=== PATIENT | female | born 1960 | race American Indian/Alaskan Native ===

== ENCOUNTER 2017-03-18 15:20 | Emergency (ER) | payer BC ==
--- NOTE | 2017-03-18 19:20 | XRay Report ---
FINAL REPORT EXAM: XR KNEE 3V LT HISTORY: ground level fall with left knee injury TECHNIQUE: AP, oblique, and lateral views of the left knee PRIORS: None. FINDINGS: No acute fracture or dislocation is seen. The soft tissues are unremarkable with no evidence for suprapatellar joint effusion. The bony mineralization is normal. There is moderate narrowing of the lateral joint compartment. Spurring off the tibial spines and the lateral knee joint is seen. IMPRESSION: No acute abnormality of the left knee. Lateral joint compartment narrowing, likely related to osteoarthritis.
--- NOTE | 2017-03-18 20:06 | Emergency Department Report ---
HPI - General Chief Complaint: Fall Time Seen by Provider: 03/18/17 19:40 - HPI HPI: Patient is a 56-year-old female with no past medical history presents to ED status post fall at [facility] earlier today. Patient states she was walking when she slipped and fell. Patient states the fall was a ground-level fall she is experiencing left knee pain after the fall. She states she did not hit her head she had no loss of consciousness after accident. Patient denies fever/chills/nausea/vomiting/abdominal pain/headaches/dizziness or any other problems. ED Past Medical Hx - Past Medical History Previous Medical History?: No - Surgical History Past Surgical History?: Yes Additional Surgical History: right breast lumpectomy - Social History Smoking Status: Never Smoker Substance Use Type: Alcohol - Medications Home Medications: Home Medications Medication Instructions Recorded Confirmed Last Taken Type Cyclobenzaprine [Flexeril 10 MG 10 mg PO QHS #24 tablet 03/18/17 Unknown Rx TAB] Ibuprofen [Motrin] 800 mg PO Q8HR PRN #30 tablet 03/18/17 Unknown Rx ED Review of Systems ROS: Stated complaint: L KNEE/HIP PAIN Other details as noted in HPI Constitutional: denies: chills, fever Eyes: denies: eye pain, eye discharge, vision change ENT: denies: ear pain, throat pain Respiratory: denies: cough, shortness of breath, wheezing Cardiovascular: denies: chest pain, palpitations Endocrine: no symptoms reported Gastrointestinal: denies: abdominal pain, nausea, diarrhea Genitourinary: denies: urgency, dysuria, discharge Musculoskeletal: denies: back pain, joint swelling, arthralgia Skin: denies: rash, lesions Neurological: denies: headache, weakness, paresthesias Psychiatric: denies: anxiety, depression Hematological/Lymphatic: denies: easy bleeding, easy bruising Physical Exam - Physical Exam Vital Signs: Vital Signs 03/18/17 03/18/17 15:39 17:29 Temperature 97.6 F 98.7 F Pulse Rate 68 70 Respiratory 18 20 Rate Blood Pressure 157/105 Blood Pressure 169/114 [Right] O2 Sat by Pulse 97 99 Oximetry Physical Exam: GENERAL: Alert and oriented x3, no apparent distress, Normal Gait, atraumatic. HEAD: Head is normocephalic and a-traumatic. NECK: Supple. Non edematous, No carotid bruits. No lymphadenopathy or thyromegaly. No C-spine tenderness LUNGS: Symetrical with respiration, No wheezing, no rales or crackles, CTAB. HEART: S1, S2 present, regular rate and rhythm without murmur, no rubs, no gallops. EXTREMITIES/MUSCULOSKELETAL: No cyanosis, clubbing, rash, lesions or edema. Knee joint is intact. No laxity. No edema noted to matter is mildly tender to palpation of the anterior knee. Full ROM bilaterally. UE/LE Pulses 2+ bilaterally. NEUROLOGIC: The patient is cooperative with no focal neurologic deficits. Cranial nerves II through XII are grossly intact. SKIN: Warm and dry, No lesions, No ulceration or induration present. ED Course Vital Signs 03/18/17 03/18/17 15:39 17:29 Temperature 97.6 F 98.7 F Pulse Rate 68 70 Respiratory 18 20 Rate Blood Pressure 157/105 Blood Pressure 169/114 [Right] O2 Sat by Pulse 97 99 Oximetry ED Medical Decision Making - Medical Decision Making 56-year-old female presents with knee pain status post fall ED course: Patient received Flexeril and Toradol in the ED. Vital signs are normal patient is in no acute distress Discussed the patient to follow up with primary care physician to be evaluated for blood pressure. Patient states she has no history of blood pressure. Patient states she understands instructions and will follow up as instructed. Discussed the patient is symptoms worsen to return to ED. Critical care attestation.: If time is entered above; I have spent that time in minutes in the direct care of this critically ill patient, excluding procedure time. ED Disposition Clinical Impression: Fall from ground level Knee pain, left Qualifiers: Chronicity: acute Qualified Code(s): M25.562 - Pain in left knee Disposition: DISCHARGED TO HOME OR SELFCARE Is pt being admited?: No Does the pt Need Aspirin: No Condition: Stable Instructions: Arthralgia (ED), Heat Pack Application (ED), Trigger Point Pain ( ED) Prescriptions: Cyclobenzaprine [Flexeril 10 MG TAB] 10 mg PO QHS #24 tablet Ibuprofen [Motrin] 800 mg PO Q8HR PRN #30 tablet PRN Reason: Pain Referrals: PRIMARY CARE, [Primary Care Provider] - 3-5 Days Forms: Accompanied Note, Work/School Release Form(ED) Time of Disposition: 20:15
[2017-03-18] MEDS ORDERED: FLEXERIL PO ONE (20:07)
[2017-03-18] MEDS ORDERED: TORADOL IM ONE (20:07)
[2017-03-18 20:36] VITALS: BP 132/80
== END 2017-03-18 20:36 | disposition home or self-care (01) ==
LOC: ED 15:20
DX: M25.562 Pain in left knee (principal); W01.0XXA Fall on same level from slipping, tripping and stumbling without subsequent striking against object, initial encounter; Y93.89 Activity, other specified; Y99.8 Other external cause status; Y92.89 Other specified places as the place of occurrence of the external cause
CPT/HCPCS: 73562; 96372; 99284; J1885